=== PATIENT | male | born 1945 | race Caucasian/White ===

== ENCOUNTER 2016-12-25 09:52 | Outpatient (CLI) | payer OTHER | END 2016-12-25 23:00 | LOC: RT SRH 09:52 | DX: R07.9 Chest pain, unspecified (principal); R06.02 Shortness of breath; R00.2 Palpitations ==

== ENCOUNTER 2017-01-03 12:05 | Outpatient (CLI) | payer OTHER ==
--- NOTE | 2017-01-04 17:12 | DIAGNOSTIC IMAGING REPORT ---
PROCEDURE: NM CARDIAC STRESS TEST INDICATION: CHEST PAIN;SOB;PALPITATIONS TECHNIQUE: Single-day sestamibi Treadmill portion: See separate report COMPARISON: None. FINDINGS: 11 mCi of technetium-99m labeled sestamibi was injected at rest with SPECT tomography performed. Some time later the patient underwent exercise stress with 32 mCi of technetium-99m labeled sestamibi with SPECT tomography performed. Rest and stress images were then compared. The LV was seen to be normal in size. The LV with stress exhibits no ischemic defects. Computer assessed ejection fraction was 61%. TID 1.12. Summed stress score, summed rest score 0, summed difference score 3. IMPRESSION: 1. Normal myocardial perfusion. No ischemia, no infarction. 2. Normal LV size and systolic function. 3. Results suggest low risk profile for major coronary ischemic events.
== END 2017-01-03 23:00 ==
LOC: NM SRH 12:05
PROC: 4A02XM4 Measurement of Cardiac Total Activity, External Approach (ICD-10-PCS; principal; 2017-01-03)
DX: R00.2 Palpitations (principal); R06.02 Shortness of breath; I10 Essential (primary) hypertension